=== PATIENT | male | born 1975 | race Caucasian/White ===

== ENCOUNTER → 2018-12-06 08:22 | Outpatient (CLI) | payer OTHER, SELFPAY ==
--- NOTE | 2018-12-06 | DI.RAD.S_ITS ---
PROCEDURE: FL SHOULDER INJECTION MR/CT LT INDICATIONS: PAIN IN LEFT SHOULDER TECHNIQUE: The indications, alternatives, benefits, risks, and complications of the procedure were explained to the patient. Written informed consent was obtained and placed in the chart. The shoulder was examined fluoroscopically and a site for needle placement chosen for entry into the glenohumeral joint from an anterior approach. The skin was prepped and draped in a sterile fashion, and 1% lidocaine infiltrated from skin down to joint capsule. A spinal needle was inserted into the glenohumeral joint, and a small amount of iodinated contrast media injected to confirm intra-articular placement of the needle tip. This was followed by approximately 12 mL dilute solution of a gadolinium containing MR contrast agent. The needle was removed and a dressing was applied. The patient was given postprocedural instructions and sent to the MR suite for MR imaging. FINDINGS: A single fluoroscopic spot image demonstrates intra-articular location of injected iodinated contrast. IMPRESSION: Successful fluoroscopically guided administration of dilute Gadolinium solution into the shoulder joint for MR arthrogram. Dictated by: Shai Lawler M.D. on 12/06/2018 at 10:30 Approved by: Shai Lawler M.D. on 12/06/2018 at 10:30
--- NOTE | 2018-12-06 | DI.MRI.S_ITS ---
PROCEDURE: MR SHOULDER LT W CON INDICATIONS: PAIN IN LEFT SHOULDER TECHNIQUE: After the administration of 12 mL of dilute intra-articular Gadolinium contrast, oblique coronal T1 and T2 spin echo with fat saturation, oblique sagittal T1 spin echo with and without fat saturation, oblique sagittal T2 fast spin echo with fat saturation, axial T1 spin echo with fat saturation through the shoulder. COMPARISON: None. FINDINGS: Image quality: Excellent. Rotator cuff: Tendinosis and low-grade articular and bursal surface partial-thickness tear involving distal supraspinatus and infraspinatus is seen at their insertion on greater tuberosity of humeral head extending to the musculotendinous junction. Tendinosis and low-grade intrasubstance partial thickness involving distal subscapularis. No full-thickness rotator cuff tendon rupture. No significant rotator cuff muscle atrophy on sagittal images. Bones and bursae: There is marrow edema involving anterior portion of humeral head with anterior medial humeral head cortical irregularity and depression suggestive of reverse Hill-Sachs lesion. No evidence of avascular necrosis is seen. No edema in the glenoid is seen. Acromioclavicular joint space is preserved. Capsule and soft tissues: There is contrast extension and chondral irregularity involving posterior labrum at approximately 7 to 9:00 position concerning for posterior inferior labral tear. The glenohumeral ligaments appear intact. The long head of the biceps tendon demonstrates normal location and morphology. The rotator interval appears normal, without fibrosis. The coracohumeral ligament is of normal thickness. No intra-articular bodies. IMPRESSION: 1. Marrow edema and cortical irregularity involving anterior medial humeral head suggestive of reverse Hill-Sachs lesion secondary to reduced posterior shoulder dislocation. No evidence of marrow edema is seen in the glenoid. No evidence of avascular necrosis of humeral head. 2. Tendinosis and low-grade intrasubstance partial thickness involving distal subscapularis. Tendinosis and low-grade articular and bursal surface partial-thickness tear involving distal supraspinatus and infraspinatus. No full-thickness rotator cuff tendon rupture. 3. Finding is concerning for posterior inferior labral tear at 7 to 9:00 position. Superior labrum is intact. Dictated by: Alejandro Delong M.D. on 12/06/2018 at 10:10 Approved by: Alejandro Delong M.D. on 12/06/2018 at 10:16
== END ==
PROVIDERS: PCP General Practice; Visit Provider General Practice
DX: M25.512 Pain in left shoulder (principal); R60.9 Edema, unspecified; M75.82 Other shoulder lesions, left shoulder; S46.912A Strain of unspecified muscle, fascia and tendon at shoulder and upper arm level, left arm, initial encounter
CPT/HCPCS: 23350; 73222; 77002

== ENCOUNTER → 2019-02-26 20:03 | Outpatient (CLI) | payer OTHER, SELFPAY ==
--- NOTE | 2019-02-26 | DI.MRI.S_ITS ---
PROCEDURE: MR LUMBAR SPINE WO CON INDICATIONS: DORSALGIA, UNSPECIFIED TECHNIQUE: Noncontrast sagittal T1 spin echo and T2 fast echo, sagittal STIR, axial T1 and T2 fast spin echo through the lumbar spine. In cases with scoliosis, additional coronal T2 fast spin echo may be performed. COMPARISON: [facility], CR, SPINE LUMB 6+VW, 07/14/2015, 15:07. [facility], MR, L-SPINE WITHOUT CONTRAST, 07/07/2015, 20:17. FINDINGS: Image quality: Excellent. Alignment and Curvature: 5 lumbar type vertebral bodies are present by plain film. There is mild grade 1 retrolisthesis of L4 on L5. Bone Marrow: Marrow is of normal overall signal. No acute vertebral body compression fractures. Irregularity of the anterosuperior L4 endplate is present, as before. Minimal reactive signal within the endplates adjacent to the L3-L4 and L4-L5 intervertebral discs. Spinal Cord: Conus medullaris terminates at the upper L2 level. Visualized cord demonstrates normal signal and size. Paraspinous Soft Tissues: No paravertebral masses. L1-L2: Normal appearance. L2-L3: Normal appearance. L3-L4: Mild disc desiccation. Mild diffuse disc bulge. Mild canal stenosis. Mild bilateral foraminal stenosis. No change. L4-L5: Mild disc height loss and desiccation. Mild diffuse disc bulge with superimposed left paracentral broad-based protrusion. Mild canal stenosis. Mild bilateral foraminal stenosis. No change. L5-S1: Moderate disc height loss and desiccation. Mild diffuse disc bulge with superimposed central protrusion. There is decreased, mild posterior deviation of the right S1 nerve root within the lateral recess. Mild canal stenosis and mild bilateral foraminal stenoses are unchanged. IMPRESSION: 1. Multilevel degenerative disc and facet disease, as well as ligamentum flavum hypertrophy. 2. Mild multilevel canal and foraminal stenoses. 3. Decreased, mild posterior deviation of the right S1 nerve root within the lateral recess at the L5-S1 disc space level. Recommend correlation with clinical symptoms to ascertain relevance of this finding. Dictated by: Elizabeth Pate M.D. on 02/27/2019 at 11:01 Approved by: Elizabeth Pate M.D. on 02/27/2019 at 11:06
== END ==
PROVIDERS: PCP General Practice; Visit Provider Orthopaedic Surgery
DX: M54.9 Dorsalgia, unspecified (principal); M51.36 Other intervertebral disc degeneration, lumbar region; M51.37 Other intervertebral disc degeneration, lumbosacral region; M48.061 Spinal stenosis, lumbar region without neurogenic claudication; M48.07 Spinal stenosis, lumbosacral region
CPT/HCPCS: 72148

== ENCOUNTER → 2020-02-14 08:01 | Outpatient (CLI) | payer OTHER, SELFPAY ==
[2020-02-14 09:05] LABS: Hematocrit 43.4 % (41-53); Hemoglobin 14.5 g/dL (13.5-17.5); Mean Corpuscular HGB Conc 33.3 % (30-36); Mean Corpuscular Hemoglobin 29.5 PG (26-34); Mean Corpuscular Volume 88.6 fL (80-100); Platelet Count 164 X10^3/uL (150-400); Red Blood Cell Count 4.89 X10^6/uL (4.5-5.9); Red Cell Distribution Width 13.6 % (11.6-14.8); White Blood Cell Count 3.4 X10^3/uL (4.5-11.0)
[2020-02-14 09:18] LABS: Alanine Aminotransferase 17 IU/L (<50); Albumin 4.2 g/dL (3.5-5.0); Albumin Globulin Ratio 1.6 (1.0-2.8); Alkaline Phosphatase 51 U/L (38-126); Aspartate Aminotransferase 22 IU/L (17-59); BUN Creatinine Ratio 14.7 (6-22); Blood Urea Nitrogen 14 mg/dL (9-20); Calcium 9.3 mg/dL (8.4-10.2); Carbon Dioxide 32 mmol/L (22-32); Chloride 103 mmol/L (98-107); Cholesterol 182 mg/dL (140-199); Estimated Glomerular Filt Rate > 60.0 mL/min (>60); Globulin 2.7 g/dL (1.7-4.1); Glucose 92 mg/dL (70-100); HDL Cholesterol 71 mg/dL (40-60); HEMOLYSIS < 15 (0-50); LDL Cholesterol Calculated 101 mg/dL (<100); Magnesium 2.1 mg/dL (1.6-2.3); Potassium 4.2 mmol/L (3.4-5.1); Sodium 139 mmol/L (137-145); Total Protein 6.9 g/dL (6.3-8.2); Triglycerides 49 mg/dL (35-150)
== END ==
PROVIDERS: PCP Nurse Practitioner Family; Referring Provider Nurse Practitioner Family; Visit Provider Nurse Practitioner Family
DX: Z00.00 Encounter for general adult medical examination without abnormal findings (principal); Z13.6 Encounter for screening for cardiovascular disorders; R25.2 Cramp and spasm
CPT/HCPCS: 36415; 80053; 80061; 83735; 85027

== ENCOUNTER → 2020-03-02 07:14 | Outpatient (CLI) | payer OTHER, SELFPAY ==
[2020-03-02 09:26] LABS: Alanine Aminotransferase 16 IU/L (<50); Albumin 4.3 g/dL (3.5-5.0); Albumin Globulin Ratio 1.6 (1.0-2.8); Alkaline Phosphatase 46 U/L (38-126); Aspartate Aminotransferase 22 IU/L (17-59); Bilirubin Total 1.2 mg/dL (0.2-1.3); Bilirubin Unconjugated 1.2 mg/dL (0.0-1.1); Globulin 2.7 g/dL (1.7-4.1); HEMOLYSIS < 15 (0-50)
== END ==
PROVIDERS: PCP Nurse Practitioner Family; Referring Provider Nurse Practitioner Family; Visit Provider Nurse Practitioner Family
DX: R17 Unspecified jaundice (principal)
CPT/HCPCS: 36415; 80076

== ENCOUNTER → 2020-03-08 07:38 | Outpatient (CLI) | payer OTHER, SELFPAY ==
--- NOTE | 2020-03-08 07:39 | DI.US.S_ITS ---
PROCEDURE: US ABDOMEN COMPLETE INDICATIONS: elevated bilirubin TECHNIQUE: Real-time scanning was performed of the abdominal and retroperitoneal organs, with image documentation. COMPARISON: Correlation is made with prior ultrasound report dated 03/07/2019. No images are available from that study at the time of this dictation. FINDINGS: Liver: The liver demonstrates normal size. The liver demonstrates generalized mildly increased echogenicity. This decreases ultrasound sensitivity for detection of hepatic masses. Gallbladder: No findings of gallstones or sludge are seen. The gallbladder wall is not thickened, measuring 3 mm or less. No specific pericholecystic fluid is seen. The sonographic Oliver sign is negative. Biliary ducts: Intrahepatic bile ducts are non-dilated. Extrahepatic bile duct caliber measures 3 mm. Normal is 6-7 mm or less in diameter, or 10 mm or less post-cholecystectomy. Pancreas: Visualized portions of the pancreas are sonographically normal. Spleen: Spleen is normal in size and homogeneous in echotexture. Kidneys: Kidneys are normal in size and echotexture. Right kidney measures 10.8 cm long; left kidney measures 10.6 cm long. No hydronephrosis or nephrolithiasis. No solid masses. Aorta: Visualized aorta is normal in caliber at less than 3 cm. Iliacs: Proximal common iliac arteries are normal in caliber at less than 2.5 cm. IVC: Intrahepatic inferior vena cava is patent. Miscellaneous: No free abdominal fluid. IMPRESSION: The liver demonstrates mildly increased echogenicity. This finding is nonspecific, yet it is most commonly attributed to fatty infiltration. The gallbladder demonstrates a normal sonographic appearance. No biliary dilatation is seen. Dictated by: Duc Omalley M.D. on 03/08/2020 at 8:43 Approved by: Duc Omalley M.D. on 03/08/2020 at 8:45
== END ==
PROVIDERS: PCP Nurse Practitioner Family; Referring Provider Nurse Practitioner Family; Visit Provider Nurse Practitioner Family
DX: R17 Unspecified jaundice (principal)
CPT/HCPCS: 76700

== ENCOUNTER → 2020-10-30 08:43 | Outpatient (CLI) | payer OTHER, SELFPAY ==
[2020-10-30 09:36] LABS: Hematocrit 43.3 % (41-53); Hemoglobin 14.6 g/dL (13.5-17.5); Mean Corpuscular HGB Conc 33.6 % (30-36); Mean Corpuscular Hemoglobin 29.6 PG (26-34); Mean Corpuscular Volume 87.9 fL (80-100); Platelet Count 158 X10^3/uL (150-400); Red Blood Cell Count 4.93 X10^6/uL (4.5-5.9); Red Cell Distribution Width 13.5 % (11.6-14.8); White Blood Cell Count 3.8 X10^3/uL (4.5-11.0)
[2020-10-30 10:17] LABS: Alanine Aminotransferase 21 IU/L (<50); Albumin Globulin Ratio 1.6 (1.0-2.8); Alkaline Phosphatase 46 U/L (38-126); Aspartate Aminotransferase 23 IU/L (17-59); BUN Creatinine Ratio 15.4 (6-22); Bilirubin Total 1.3 mg/dL (0.2-1.3); Blood Urea Nitrogen 14 mg/dL (9-20); Calcium 9.7 mg/dL (8.4-10.2); Carbon Dioxide 29 mmol/L (22-32); Chloride 103 mmol/L (98-107); Estimated Glomerular Filt Rate > 60.0 mL/min (>60); Globulin 2.5 g/dL (1.7-4.1); Glucose 90 mg/dL (70-100); HEMOLYSIS < 15 (0-50); Potassium 4.6 mmol/L (3.4-5.1); Sodium 138 mmol/L (137-145); Total Protein 6.5 g/dL (6.3-8.2)
== END ==
PROVIDERS: PCP Nurse Practitioner Family; Referring Provider Nurse Practitioner Family; Visit Provider Nurse Practitioner Family
DX: R17 Unspecified jaundice (principal)
CPT/HCPCS: 36415; 80053; 85027

== ENCOUNTER → 2021-01-04 07:43 | Outpatient (CLI) | payer OTHER, SELFPAY ==
[2021-01-04 08:17] LABS: COVID19 -Nasal RAPID POSITIVE (Negative)
== END ==
PROVIDERS: PCP Nurse Practitioner Family; Visit Provider Physician Assistant
DX: U07.1 COVID-19 (principal)
CPT/HCPCS: 87635

== ENCOUNTER → 2021-01-13 19:02 | Outpatient (CLI) | payer OTHER, SELFPAY ==
--- NOTE | 2021-01-13 19:05 | DI.RAD.S_ITS ---
PROCEDURE: XR CHEST 2V INDICATIONS: cough, post covid TECHNIQUE: 2 views of the chest were acquired. COMPARISON: None. FINDINGS: Surgical changes and devices: None. Lungs and pleura: Lungs are clear. No pleural effusions or pneumothorax. Mediastinum: Mediastinal contours are normal. Heart size is normal. Bones and chest wall: No suspicious bony abnormalities. Soft tissues appear unremarkable. IMPRESSION: No acute disease. Dictated by: Mikal Foster M.D. on 01/14/2021 at 10:52 Approved by: Mikal Foster M.D. on 01/14/2021 at 10:53
== END ==
PROVIDERS: PCP Nurse Practitioner Family; Referring Provider Nurse Practitioner; Visit Provider Nurse Practitioner
DX: U07.1 COVID-19 (principal); R05 Cough
CPT/HCPCS: 71046

== ENCOUNTER → 2022-07-22 08:47 | Outpatient (CLI) | payer OTHER, SELFPAY ==
[2022-07-22 09:30] LABS: Add Manual Diff / Slide Review NO; Basophils Absolute Auto 0 /uL (0-100); Eosinophils Absolute Auto 100 /uL (0-450); Eosinophils Percent Auto 1.7 % (2-4); Hematocrit 43.5 % (41-53); Hemoglobin 14.5 g/dL (13.5-17.5); Lymphocytes Absolute Auto 1400 /uL (1100-4500); Lymphocytes Percent Auto 37.3 % (25-40); Mean Corpuscular HGB Conc 33.3 % (30-36); Mean Corpuscular Hemoglobin 29.2 PG (26-34); Mean Corpuscular Volume 87.7 fL (80-100); Monocytes Absolute Auto 300 /uL (0-900); Monocytes Percent Auto 8.9 % (3-14); Neutrophils Absolute Auto 1900 /uL (1500-7000); Neutrophils Percent Auto 51.1 % (50-75); Platelet Count 175 X10^3/uL (150-400); Red Blood Cell Count 4.96 X10^6/uL (4.5-5.9); Red Cell Distribution Width 13.6 % (11.6-14.8); White Blood Cell Count 3.7 X10^3/uL (4.5-11.0)
[2022-07-22 12:08] LABS: Free T4, Direct Thyroxine 0.77 ng/dL (0.78-2.19)
[2022-07-22 12:22] LABS: Alanine Aminotransferase 21 IU/L (<50); Albumin 4.2 g/dL (3.5-5.0); Albumin Globulin Ratio 1.7 (1.0-2.8); Alkaline Phosphatase 49 U/L (38-126); Aspartate Aminotransferase 20 IU/L (17-59); Bilirubin Total 1.4 mg/dL (0.2-1.3); Blood Urea Nitrogen 15 mg/dL (9-20); Calcium 9.3 mg/dL (8.4-10.2); Carbon Dioxide 31 mmol/L (22-32); Chloride 100 mmol/L (98-107); Cholesterol 183 mg/dL (140-199); Estimated Glomerular Filt Rate > 60 mL/min (>60); Globulin 2.5 g/dL (1.7-4.1); Glucose 80 mg/dL (70-100); HDL Cholesterol 65 mg/dL (40-60); HEMOLYSIS < 15 (0-50); LDL Cholesterol Calculated 108 mg/dL (<100); Potassium 4.6 mmol/L (3.4-5.1); Sodium 137 mmol/L (137-145); Thyroid Stimulating Hormone 0.832 uIU/mL (0.47-4.68); Total Protein 6.7 g/dL (6.3-8.2); Triglycerides 50 mg/dL (35-150)
== END ==
PROVIDERS: PCP Family Medicine; Referring Provider Family Medicine; Visit Provider Family Medicine
DX: Z00.00 Encounter for general adult medical examination without abnormal findings (principal)
CPT/HCPCS: 36415; 80053; 80061; 84439; 84443; 85025

== ENCOUNTER → 2022-09-26 07:14 | Outpatient (CLI) | payer OTHER, SELFPAY ==
[2022-09-26 08:45] LABS: Free T4, Direct Thyroxine 0.73 ng/dL (0.78-2.19)
[2022-09-26 08:59] LABS: Thyroid Stimulating Hormone 0.558 uIU/mL (0.47-4.68)
== END ==
PROVIDERS: PCP Family Medicine; Referring Provider Family Medicine; Visit Provider Family Medicine
DX: E03.9 Hypothyroidism, unspecified (principal)
CPT/HCPCS: 36415; 84439; 84443

== ENCOUNTER 2022-11-10 07:28 | Day surgery (SDC) | payer OTHER, SELFPAY ==
[2022-11-10 08:00] VITALS: BP 110/68; PULSE 60; RESP 16; TEMP 36.1; O2SAT 97; BMI 25.8
[2022-11-10] MEDS: LACTATED RINGERS 1,000 ML 100 ML IV (08:15)
--- NOTE | 2022-11-10 08:37 | P.HP_ITS ---
History of Present Illness History of Present Illness Date Patient Seen: 11/10/22 Time Patient Seen: 08:37 Chief complaint: [facility] [place] Narrative: 47-year-old man presents today for his 1st screening colonoscopy. His grandfather did have colon cancer in his 60s. He believes his dad had polyps on his colonoscopy. He has an older brother who has had a colonoscopy but he is unaware of whether there were polyps or not. He has no concerning symptoms: no bleeding from below cramping abdominal pain or changes in bowel habits. [facility] Medical History Borderline hypothyroidism Chicken pox (~1979) Elevated bilirubin (02/2020) Encounter for wellness examination in adult (11/09/20) Family history of hyperlipidemia Fractures (~1987) Multiple skin nodules Muscle cramps Shoulder pain (~1996) Tinnitus (~2014) Tinnitus of both ears (2014) Toenail fungus (~2013) Surgical History Anesthesia History of discectomy (~07/2014) Family History Father Hyperlipidemia Mother Hyperlipidemia Uterine cancer Brother History of bipolar disorder Grandfather Colon cancer Social History household members: spouse Smoking Status: Never smoker second hand exposure: No alcohol intake: current substance use type: does not use Meds Home Medications and Allergies Home Medications Medication Instructions Recorded Confirmed Type No Known Home Medications 11/10/22 11/10/22 History Allergies Allergy/AdvReac Type Severity Reaction Status Date / Time No Known Drug Allergies Allergy Verified 11/10/22 07:17 Exam Vital Signs (past 8 hours): - 11/10/22 08:00 Temperature 97 F L Pulse Rate 60 Respiratory Rate 16 Blood Pressure 110/68 Pulse Oximetry 97 Oxygen Delivery Method Room Air Oxygen Delivery Method Room Air Const General: cooperative, healthy appearing and comfortable HENMT Head: normal to inspection Eyes General: appearance normal, both eyes and all related structures Resp Effort & Inspection: normal respiratory effort and able to speak in complete sentences GI Palpation: soft and No tender Extrem General: normal to inspection Assessment & Plan Assessment and plan (1) Family history of colon cancer: Problem details: Grandfather age 60 Status: Acute (2) Screening for colon cancer: Status: Acute Assessment & Plan narrative: Presents today for screening colonoscopy I discussed the risks benefits and alternatives including but not limited to perforation of the colon and an incomplete exam he fully understands these risks and would like to proceed.
[2022-11-10 09:15] VITALS: BP 111/78; PULSE 76; RESP 15; TEMP 36.4; O2SAT 99
[2022-11-10 09:18] VITALS: BP 118/77; PULSE 72; RESP 14; O2SAT 100
--- NOTE | 2022-11-10 09:21 | PM.OP.COLON ---
Operative Date/Time/Diagnoses Date of procedure: 11/10/22 Time of procedure: 09:21 Pre-op diagnosis: Family history of colon cancer in grandfather, screening colonoscopy Post-op diagnosis: same Procedure & Clinicians Study performed: Screening colonoscopy Same procedure as scheduled: Yes Indications: Family history of colon cancer in grandfather and screening colonoscopy Surgeon: Cynthia Kelly Procedure Notes Procedure in detail: Patient was taken to the endoscopy suite and placed in a left lateral decubitus position. A time-out was performed. With the help of anesthesiology provider, conscious sedation was induced and monitored throughout the case. A digital rectal exam was performed and there were no masses or strictures. The colonoscope was introduced into the anal canal and advanced through to the cecum. A photograph of the appendiceal orifice was obtained. The bowel prep was excellent [place] bowel prep score of 3. The scope was then withdrawn for a total of 13 minutes and no polyps were seen. Upon withdraw the internal hemorrhoidal piles appeared normal. No diverticula appreciated. Patient tolerated the procedure well and went in good condition to the postoperative care unit. Specimen(s): none sent Post-procedure Recommendations: Colonoscopy in 5 years Plan for aftercare: Has a family history of colon - cancer a 5 year follow-up is recommended. Discussed with Nevin by phone and encouraged to call office of [facility] with any questions or concerns
[2022-11-10 09:24] VITALS: BP 120/86; PULSE 70; RESP 11; O2SAT 100
[2022-11-10 09:29] VITALS: BP 120/87; PULSE 69; RESP 12; TEMP 36.4; O2SAT 100
== END 2022-11-10 09:49 | disposition home or self-care (01) ==
PROVIDERS: PCP Family Medicine; Referring Provider Surgery; Visit Provider Surgery
PROC: 0DJD8ZZ Inspection of Lower Intestinal Tract, Via Natural or Artificial Opening Endoscopic (ICD-10-PCS; CPT 45378; principal; 2022-11-10 08:30)
DX: Z12.11 Encounter for screening for malignant neoplasm of colon (principal)
CPT/HCPCS: 45378; J2704

== ENCOUNTER → 2023-02-14 10:17 | Outpatient (CLI) | payer OTHER, SELFPAY ==
[2023-02-14 11:35] LABS: Prolactin 11.2 ng/mL (3.7-17.9)
[2023-02-14 11:42] LABS: Free T4, Direct Thyroxine 0.96 ng/dL (0.78-2.19)
[2023-02-14 11:56] LABS: Thyroid Stimulating Hormone 0.274 uIU/mL (0.47-4.68)
[2023-02-16 14:51] LABS: Calcium 9.3 mg/dL (8.7-10.2); Parathyroid Hormone, Intact 57 pg/mL (15-65)
== END ==
PROVIDERS: PCP Family Medicine; Referring Provider Family Medicine; Visit Provider Family Medicine
DX: E03.9 Hypothyroidism, unspecified (principal)
CPT/HCPCS: 36415; 82310; 83970; 84146; 84439; 84443

== ENCOUNTER → 2023-03-15 16:14 | Outpatient (CLI) | payer OTHER, SELFPAY ==
--- NOTE | 2023-03-15 16:17 | DI.RAD.S_ITS ---
PROCEDURE: XR KNEE LT 3V INDICATIONS: L knee pain TECHNIQUE: 3 views of the knee were acquired. COMPARISON: None. FINDINGS: Bones: No fractures or dislocations. No suspicious bony lesions. Soft tissues: No joint effusion. No suspicious soft tissue calcifications. IMPRESSION: Normal left knee radiographs Approved by: Tam Garcias M.D. on 03/15/2023 at 18:27
== END ==
PROVIDERS: PCP Family Medicine; Referring Provider Family Medicine; Visit Provider Family Medicine
DX: M25.562 Pain in left knee (principal)
CPT/HCPCS: 73562

== ENCOUNTER → 2023-04-25 08:03 | Outpatient (CLI) | payer OTHER, SELFPAY ==
[2023-04-25 09:30] LABS: Free T4, Direct Thyroxine 1.05 ng/dL (0.78-2.19)
[2023-04-25 09:43] LABS: Thyroid Stimulating Hormone 0.084 uIU/mL (0.47-4.68)
== END ==
PROVIDERS: PCP Family Medicine; Referring Provider Family Medicine; Visit Provider Family Medicine
DX: E03.9 Hypothyroidism, unspecified (principal)
CPT/HCPCS: 36415; 84439; 84443

== ENCOUNTER → 2024-04-23 07:25 | Outpatient (CLI) | payer OTHER, SELFPAY ==
[2024-04-23 09:36] LABS: Add Manual Diff / Slide Review NO; Basophils Absolute Auto 0 /uL (0-100); Basophils Percent Auto 0.5 % (0-2); Eosinophils Absolute Auto 100 /uL (0-450); Hematocrit 42.8 % (41-53); Hemoglobin 14.7 g/dL (13.5-17.5); Lymphocytes Absolute Auto 1400 /uL (1100-4500); Lymphocytes Percent Auto 32.4 % (25-40); Mean Corpuscular HGB Conc 34.3 % (30-36); Mean Corpuscular Volume 87.3 fL (80-100); Monocytes Absolute Auto 400 /uL (0-900); Monocytes Percent Auto 9.9 % (3-14); Neutrophils Absolute Auto 2300 /uL (1500-7000); Neutrophils Percent Auto 54.2 % (50-75); Platelet Count 181 X10^3/uL (150-400); Red Cell Distribution Width 13.6 % (11.6-14.8); White Blood Cell Count 4.3 X10^3/uL (4.5-11.0)
[2024-04-23 10:22] LABS: Alanine Aminotransferase 26 IU/L (<50); Albumin 4.2 g/dL (3.5-5.0); Albumin Globulin Ratio 1.9 (1.0-2.8); Alkaline Phosphatase 44 U/L (38-126); Aspartate Aminotransferase 25 IU/L (17-59); BUN Creatinine Ratio 13.3 (6-22); Bilirubin Total 1.3 mg/dL (0.2-1.3); Blood Urea Nitrogen 13 mg/dL (9-20); Calcium 9.5 mg/dL (8.4-10.2); Carbon Dioxide 29 mmol/L (22-32); Chloride 102 mmol/L (98-107); Cholesterol 195 mg/dL (140-199); Estimated Glomerular Filt Rate > 60 mL/min (>60); Globulin 2.2 g/dL (1.7-4.1); Glucose 82 mg/dL (70-100); HDL Cholesterol 71 mg/dL (40-60); HEMOLYSIS < 15 (0-50); LDL Cholesterol Calculated 114 mg/dL (<100); Sodium 137 mmol/L (137-145); Total Protein 6.4 g/dL (6.3-8.2); Triglycerides 52 mg/dL (35-150)
[2024-04-23 10:26] LABS: Free T4, Direct Thyroxine 0.93 ng/dL (0.78-2.19)
[2024-04-23 10:46] LABS: Prostate Specific Antigen 0.841 ng/mL (0.10-4.00)
== END ==
PROVIDERS: PCP Family Medicine; Referring Provider Family Medicine; Visit Provider Family Medicine
DX: Z00.00 Encounter for general adult medical examination without abnormal findings (principal); E03.9 Hypothyroidism, unspecified; Z83.438 Family history of other disorder of lipoprotein metabolism and other lipidemia
CPT/HCPCS: 36415; 80053; 80061; 84153; 84439; 84443; 85025

== ENCOUNTER → 2024-12-01 17:01 | Outpatient (CLI) | payer OTHER, SELFPAY ==
[2024-12-01 17:47] LABS: Free T4, Direct Thyroxine 0.92 ng/dL (0.78-2.19)
[2024-12-01 18:01] LABS: Thyroid Stimulating Hormone 0.109 uIU/mL (0.47-4.68)
== END ==
LOC: LAB 17:01
PROVIDERS: PCP Family Medicine; Referring Provider Family Medicine; Visit Provider Family Medicine
DX: E03.9 Hypothyroidism, unspecified (principal)
CPT/HCPCS: 36415; 84439; 84443

== ENCOUNTER → 2025-05-02 08:17 | Outpatient (CLI) | payer OTHER, SELFPAY ==
[2025-05-02 08:43] LABS: Add Manual Diff / Slide Review NO; Hematocrit 43.1 % (41-53); Hemoglobin 14.9 g/dL (13.5-17.5); Lymphocytes Absolute Auto 1400 /uL (1100-4500); Mean Corpuscular HGB Conc 34.5 % (30-36); Mean Corpuscular Hemoglobin 29.9 PG (26-34); Mean Corpuscular Volume 86.7 fL (80-100); Platelet Count 183 X10^3/uL (150-400)
[2025-05-02 09:12] LABS: Alanine Aminotransferase 20 IU/L (<50); Albumin 4.1 g/dL (3.5-5.0); Albumin Globulin Ratio 1.6 (1.0-2.8); Alkaline Phosphatase 47 U/L (38-126); Blood Urea Nitrogen 14 mg/dL (9-20); Calcium 9.3 mg/dL (8.4-10.2); Carbon Dioxide 30 mmol/L (22-32); Chloride 104 mmol/L (98-107); Cholesterol 192 mg/dL (140-199); Estimated Glomerular Filt Rate > 60 mL/min (>60); Globulin 2.5 g/dL (1.7-4.1); Glucose 94 mg/dL (70-99); HDL Cholesterol 74 mg/dL (40-60); HEMOLYSIS < 15 (0-50); Potassium 4.5 mmol/L (3.4-5.1); Sodium 138 mmol/L (137-145); Total Protein 6.6 g/dL (6.3-8.2); Triglycerides 53 mg/dL (35-150)
[2025-05-02 09:28] LABS: Free T4, Direct Thyroxine 0.84 ng/dL (0.78-2.19)
[2025-05-02 09:42] LABS: Thyroid Stimulating Hormone 0.397 uIU/mL (0.47-4.68)
== END ==
PROVIDERS: PCP Family Medicine; Referring Provider Family Medicine; Visit Provider Family Medicine
DX: Z00.00 Encounter for general adult medical examination without abnormal findings (principal); E03.9 Hypothyroidism, unspecified; E87.5 Hyperkalemia
CPT/HCPCS: 36415; 80053; 80061; 84439; 84443; 85025